=== PATIENT | female | born 1945 | race Caucasian/White ===

== ENCOUNTER → 2022-11-05 | Outpatient (CLI) | payer MEDICARE, BC ==
--- NOTE | 2022-11-08 06:07 | NM ---
EXAMINATION TYPE: NM bone 3 phase DATE OF EXAM: 11/05/2022 COMPARISON: Outside bilateral knee x-rays November 01, 2022 HISTORY: Bilateral knee pain. History of left knee replacement 2018. Right knee osteoarthritis border . Triple phase bone scintigraphy was performed following the injection of 23.5 mCi Tc 99m MDP. Immedia te images and 5.25 hours post injection images acquired. Imaging performed of the bilateral knees. FINDINGS: Dynamic arterial and soft tissue phase images show no asymmetric increased radiotracer uptake to eith er knee. There is lucency from prosthesis in the left knee noted. Delayed images show mild nonspecifi c radiotracer uptake in the right knee and surrounding the left knee prosthesis favoring degenerative change IMPRESSION: No three-phase increased radiotracer uptake in the left knee to suggest prosthetic loosen ing or infection.
== END | disposition home or self-care (01) ==
LOC: RADNMMAIN 07:23
PROVIDERS: ATTEND Orthopaedic Surgery
DX: T84.84XA Pain due to internal orthopedic prosthetic devices, implants and grafts, initial encounter (principal); M17.11 Unilateral primary osteoarthritis, right knee; Z96.652 Presence of left artificial knee joint
CPT/HCPCS: 78315; A9503

== ENCOUNTER → 2022-11-11 | Outpatient (CLI) | payer MEDICARE, BC ==
--- NOTE | 2022-11-11 11:42 | US ---
EXAMINATION TYPE: US venous doppler duplex LE LT DATE OF EXAM: 11/11/2022 11:32 AM COMPARISON: NONE CLINICAL INDICATION: Female, 77 years old with history of [id number] PAIN IN LEFT KNEE; Pain. Factor fiv e. Not on blood thinners. No redness or swelling. Hx blood clot in right leg per patient. SIDE PERFORMED: Left TECHNIQUE: The lower extremity deep venous system is examined utilizing real time linear array sonog ashley with graded compression, doppler sonography and color-flow sonography. VESSELS IMAGED: Common Femoral Vein Deep Femoral Vein Greater Saphenous Vein * Femoral Vein Popliteal Vein Small Saphenous Vein * Proximal Calf Veins (* superficial vessels) Left Leg: Negative for DVT IMPRESSION: No evidence of DVT at this time.
== END | disposition home or self-care (01) ==
LOC: RADUSWWP 11:06
PROVIDERS: ATTEND Orthopaedic Surgery
DX: T84.84XD Pain due to internal orthopedic prosthetic devices, implants and grafts, subsequent encounter (principal); I80.9 Phlebitis and thrombophlebitis of unspecified site; Z96.652 Presence of left artificial knee joint
CPT/HCPCS: 85379; 85652; 86140

== ENCOUNTER → 2023-04-04 | Outpatient (CLI) | payer MEDICARE, BC ==
[2023-04-04 21:27] LABS: HCT 41.8 % (37.2-46.3); HGB 13.9 d/dL (12.0-15.0); MCH 31.6 pg (27.0-32.0); MCHC 33.3 d/dL (32.0-37.0); Mean Platelet Volume 8.8 FL (9.5-12.2); NRBC Per 100 WBC 0 X 10*3/uL (0.00-0.01); Platelet Count 282 X 10*3/uL (140-440); RDW 12.1 % (11.5-14.5)
[2023-04-04 21:54] LABS: Blood Urea Nitrogen 17.2 mg/dL (9.0-27.0); Carbon Dioxide 25.4 mmol/L (21.6-31.8); Chloride 104 mmol/L (96-109); Potassium 5.8 mmol/L (3.5-5.5); Sodium 140 mmol/L (135-145)
== END | disposition home or self-care (01) ==
LOC: LABPAT 13:14
PROVIDERS: ATTEND Internal Medicine Clinical Cardiac Electrophysiology
DX: Z01.812 Encounter for preprocedural laboratory examination (principal); R55 Syncope and collapse
CPT/HCPCS: 36415; 80051; 82565; 84520; 85027

== ENCOUNTER 2023-04-25 06:06 | Day surgery (SDC) | payer MEDICARE, BC ==
[2023-04-25] MEDS ORDERED: SODIUM CHLORIDE 0.9% 1,000 ML IV SCH ×2 (06:07)
[2023-04-25] MEDS ORDERED: IV FLUID CONTINUATION 1,000 ML IV ONE (08:44)
[2023-04-25] MEDS ORDERED: HEPARIN SODIUM,PORCINE 5,000 UNIT/ML 1 ML VIAL ONE (10:14)
[2023-04-25] MEDS ORDERED: PROPOFOL 10 MG/ML 20 ML VIAL IV ONE (10:14)
[2023-04-25] MEDS ORDERED: fentaNYL (PF) 50 MCG/ML 2 ML AMP ONE (10:14)
[2023-04-25] MEDS ORDERED: MIDAZOLAM 2 MG/2 ML VIAL ONE (10:14)
[2023-04-25] MEDS ORDERED: ISOPROTERENOL 250 MCG/1.25 ML SYR IV ONE (10:14)
[2023-04-25] MEDS ORDERED: ONDANSETRON 4 MG/2 ML VIAL ONE (10:14)
--- NOTE | 2023-04-25 10:21 | P.HPCAR ---
History of Present Illness This is Dr. 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 Monitor has demonstrated episodes of SVT PLAN: Tilt table testing Diagnostic EP study to look for any inducible arrhythmias and management accordingly HPI Patient continues to have episodes of presyncope associated with palpitations She had yet another episode on Tuesday Interim improved upon sitting down She was dizzy and presyncopal but did not lose consciousness No cough shortness of breath and chest discomfort ROS: No fever chills or rigors, no cough, phlegm or expectoration, no nausea, vomiting or diarrhea, no hematuria, dysuria, no musculoskeletal complaints, no strokes or seizures, no skin lesions. EXAMINATION: Blood pressure 158/84 mmHg pulse rate in the 80s afebrile Breath sounds are clear Heart sounds S1 and S2 are normal Abdomen is soft No JVD no carotid bruits REVIEW OF LABS, ECG & MEDICAL DATA Home medications include valsartan pravastatin Physical Exam Vitals: Vital Signs Temp Pulse Resp BP Pulse Ox 04/25/23 07:01 98 F 84 18 158/84 96 Intake and Output 04/24/23 04/25/23 04/25/23 22:59 06:59 14:59 Intake Total 100 Balance 100 Intake: IV 100 Other: Weight 68.6 kg Past Medical History Past Medical History: Atrial Fibrillation, Deep Vein Thrombosis (DVT), Hypertension Additional Past Medical History / Comment(s): with a fib, gets dizzy and fluttering, pressure, 1972 blood clot behing rt knee, See Dr Pond's H & P History of Any Multi-Drug Resistant Organisms: None Reported Past Surgical History: Appendectomy, Back Surgery, Section, Hysterectomy, Joint Replacement Additional Past Surgical History / Comment(s): lft knee replaced, fusion with leon and screws to back 4,5,6 cervical spine also fused.terence carpal tunnel Past Anesthesia/Blood Transfusion Reactions: No Reported Reaction Smoking Status: Former smoker Physical Examination Vital Signs Temp Pulse Resp BP Pulse Ox 04/25/23 07:01 98 F 84 18 158/84 96 Intake and Output 04/24/23 04/25/23 04/25/23 22:59 06:59 14:59 Intake Total 100 Balance 100 Intake: IV 100 Other: Weight 68.6 kg Results Current Medications Generic Name Dose Route Start Last Admin Trade Name Pelon PRN Reason Stop Dose Admin Sodium Chloride 1,000 mls @ 20 mls/hr 04/25/23 06:07 Saline 0.9% IV 05/25/23 06:08 .Q24H HA Sodium Chloride 1,000 mls @ 20 mls/hr 04/25/23 06:07 04/25/23 07:02 Saline 0.9% IV 05/25/23 06:08 100 mls .Q24H HA Administration Intake and Output 04/24/23 04/25/23 04/25/23 22:59 06:59 14:59 Intake Total 100 Balance 100 Intake: IV 100 Other: Weight 68.6 kg Patient Weight 04/26/23 06:59 Weight 68.6 kg
--- NOTE | 2023-04-25 10:26 | P.EPPROC ---
- EP Procedure Note Electrophysiology Procedure Note: Diagnosis Recurrent presyncope and near syncope Twelve-lead Normal HI narrow QRS normal ST segments normal QT interval No delta waves Heart rate 73 beats a minute Tilt table test per protocol Baseline blood pressure 137 65 mmHg Baseline 163 beats a minute Patient was tilted upright at an angle of 70 per protocol There was an intermediate drop in blood pressure by about 10-20 points with a mild increase in heart rate into the 80s Following that the blood pressure returned to baseline Blood pressure remained normal thereafter/stable Heart rate remained in the 80s and 90s No evidence for dysautonomia or neurocardiogenic syncope Impression Mild initial orthostatic hypotension, transient, upon standing Normal twelve-lead EKG No evidence for neurocardiogenic phenomena or orthostatic hypotension syndrome
[2023-04-25] MEDS ORDERED: LIDOCAINE 1% INJ 10MG/ML (20 ML MDV) SQ ONE (10:41)
[2023-04-25] MEDS ORDERED: IOPAMIDOL-370 100ML BTL INJ ONE (10:53)
[2023-04-25] MEDS ORDERED: LIDOCAINE 1% INJ 10MG/ML (20 ML MDV) ONE ×2 (11:53→11:55)
[2023-04-25 12:32] LABS: HCT 38.5 % (34.0-46.0); HGB 13.1 gm/dL (11.4-16.0); MCHC 34.1 g/dL (31.0-37.0); MCV 96.7 fL (80.0-100.0); Mean Platelet Volume 7.6; Platelet Count 248 k/uL (150-450); RBC 3.98 m/uL (3.80-5.40); RDW 12.4 % (11.5-15.5); WBC 7.1 k/uL (3.8-10.6)
[2023-04-25] MEDS ORDERED: HEPARIN SODIUM (1,000 UNIT/ML) 1,000 UNIT in SODIUM CHLORIDE 0.9% 1,000 ML IRRIGATION ONE (12:53)
[2023-04-25] MEDS ORDERED: ACETAMINOPHEN TAB 325 MG TAB PO PRN (13:00)
[2023-04-25] MEDS ORDERED: ACETAMINOPHEN IV (For NPO) 1,000 MG in EMPTY BAG 1 BAG IVPB ONE (13:00)
[2023-04-25] MEDS: METOPROLOL SUCCINATE (ER) 25 MG TAB.ER.24H PO SCH (13:52)
[2023-04-25] MEDS: FLECAINIDE 50 MG TAB PO SCH ×2 (13:52→19:51)
--- NOTE | 2023-04-25 14:24 | P.EPPROC ---
- EP Procedure Note Electrophysiology Procedure Note: Diagnosis Recurrent palpitations or presyncope Documented tachycardia on event monitor, supraventricular Tilt table test did not show any evidence for neurocardiogenic syncope or dysautonomia Final diagnosis Rapid atrial fibrillation/atrial tachycardia originating from the septum on the left side of the atrium Early activation from a broad area on the septum/multicentric Likely primary source of the right-sided pulmonary veins and the septum History of factor V Leyden deficiency with history of left-sided DVT Occluded left iliac vein occluding access. Large collaterals, tortuous Patent right iliac vein and left subclavian veins Plan Flecainide 50 mg twice daily Metoprolol succinate 25 mg once daily Continue antihypertensive therapy Consider A. fib ablation since this tachycardia results in recurrent syncope and presyncope Anticoagulation to be started 4 weeks before A. fib ablation Hold metoprolol and flecainide prior to A. fib ablation, 2 days In the A. fib ablation we will proceed with at access from the right femoral vein and coronary sinus cannulation via the left subclavian vein Cryoablation of all pulmonary veins and the septum will be performed Following that a diagnostic EP study to look for any residual atrial tachycardias and need for any RF ablation thereafter Details Patient was brought to the EP lab in a fasting state. Written informed consent was obtained prior to the procedure. Venous access obtained successfully in the left femoral vein. However the catheters could not be advanced beyond the iliac vein Finally a venogram was performed and it showed an occlusion of the left iliac vein with extensive collaterals, large and tortuous consistent with a chronic occlusion Venogram was performed right femoral and iliac vein and this was found to be large and patent 3 venous sheaths were placed in the right femoral vein Diagnostic catheters were placed in the right heart in the high right atrium and dilated and the Hank sinus, His bundle area and right ventricle Sinus cycle length 948 ms, SC interval 174 ms, QRS 97 ms and QRS 425 ms AH 86 and HV 43 ms Sinus recovery times were normal at 1143, 1063 and 840 ms AV node Wenckebach block 420 ms VA Wenckebach block 410 ms Parahisian pacing revealed a prema response Atrial extra stimulation performed from her treatment coronary sinus. Antegrade slow pathway conduction was noted but no induction of AV prema reentry Isuprel was started and on high dose Isuprel while pacing from the right ventricle during VA Wenckebach block SVT was induced SVT was induced with ventricular pacing cycle length 160 ms Tachycardia cycle length was about 290 ms Long RP SVT Slight variation in the amplitudes and the electrograms Concentric activation in the coronary sinus Ventricular pacing resulted in association Hank sinus he flexes stimulation was performed SVT was not induced A venous sheaths were then placed in the left subclavian vein and Hank sinus access and cannulation was performed Pentaray catheter was used from below to mapped the right atrium SVT was induced 3-D mapping revealed a broad area of activation in the mid septum of the right atrium In the catheter was placed just below the SVC it completely disorganized into atrial fibrillation Following that Isuprel was discontinued and later electrical cardioversion performed with a 200 J shock to sinus rhythm since the atrial fibrillation is persistent In evaluation of coronary sinus electrograms revealed a septal deviation in the amplitude and retrogram characteristics consistent with atrial fibrillation
--- NOTE | 2023-04-25 14:25 | P.PRLE ---
RE: Radha Arenas Dear Dr. Arin Terrell underwent a diagnostic EP study for recurrent palpitations and presyncope She actually has atrial fibrillation, not SVT I will schedule her for an A. fib ablation in the near future but she needs to be in anticoagulation for at least 4 weeks prior to this In the interim I would treat her with flecainide and metoprolol Thank you for entrusting me with the care of the patient Warm regards Sincerely Shaheen Pond
[2023-04-25 19:32] VITALS: RESP 16
[2023-04-25] MEDS ORDERED: PRAVASTATIN SODIUM 40 MG TAB PO SCH (21:00)
[2023-04-26 01:54] VITALS: PULSE 68
[2023-04-26] MEDS: METOPROLOL SUCCINATE (ER) 25 MG TAB.ER.24H PO SCH (07:42)
[2023-04-26] MEDS: FLECAINIDE 50 MG TAB PO SCH (07:43)
[2023-04-26 08:55] LABS: HCT 36.5 % (37.2-46.3); MCH 31.6 pg (27.0-32.0); MCHC 32.9 d/dL (32.0-37.0); MCV 96.1 FL (80.0-97.0); Mean Platelet Volume 8.8 FL (9.5-12.2); NRBC Per 100 WBC 0 X 10*3/uL (0.00-0.01); Platelet Count 217 X 10*3/uL (140-440); RDW 12.6 % (11.5-14.5); WBC 6.69 X 10*3/uL (4.50-10.00)
[2023-04-26 08:58] VITALS: BP 110/71; TEMP 97.5
[2023-04-26] MEDS ORDERED: VALSARTAN 160 MG TAB PO SCH (09:00)
--- NOTE | 2023-04-26 09:50 | P.DS ---
Providers Attending physician: Shaheen Pond Primary care physician: [facility] Course: Patient sitting comfortably in a chair No chest discomfort No abdominal discomfort No dizziness or lightheadedness Rhythm is normal Tolerating flecainide Twelve-lead EKG today shows sinus rhythm normal LA narrow QRS normal ST segments on flecainide heart rate 60 beats a minute On examination abdomen no tenderness in the right and left quadrants Groins of healed well no hematoma Subclavian site access is mildly tender Hemoglobin 12 Impression Paroxysmal atrial fibrillation with RVR associated with presyncope as diagnosed on EP study yesterday Started temporarily on metoprolol and flecainide Would recommend an EP study and ablation for atrial fibrillation Most likely sources are the right-sided pulmonary veins and the septum on the left side. These will be targeted appropriately with cryoablation and if needed RF ablation The plan is to hold metoprolol and flecainide for 2 days prior to the procedure ELIQUIS starting 4 weeks before the procedure and to continue thereafter Discharge home today follow with Dr. Gordon Will schedule for A. fib ablation Discussed with the patient Instructions given Plan - Discharge Summary Discharge Rx Participant: No New Discharge Prescriptions: New Metoprolol Succinate (ER) [Toprol XL] 25 mg PO DAILY #90 tab Flecainide [Tambocor] 50 mg PO Q12HR #60 tab Continue Valsartan [Diovan] 160 mg PO DAILY Acetaminophen Tab [Tylenol] 650 mg PO Q6H PRN PRN Reason: Pain Cranberry Fruit Extract [Cranberry] 500 mg PO DAILY Pravastatin Sodium [Pravachol] 40 mg PO HS Ascorbic Acid [Vitamin C] 500 mg PO DAILY Discharge Medication List Acetaminophen Tab [Tylenol] 650 mg PO Q6H PRN 04/13/23 [History] Ascorbic Acid [Vitamin C] 500 mg PO DAILY 04/13/23 [History] Cranberry Fruit Extract [Cranberry] 500 mg PO DAILY 04/13/23 [History] Pravastatin Sodium [Pravachol] 40 mg PO HS 04/13/23 [History] Valsartan [Diovan] 160 mg PO DAILY 04/13/23 [History] Flecainide [Tambocor] 50 mg PO Q12HR #60 tab 04/26/23 [Rx] Metoprolol Succinate (ER) [Toprol XL] 25 mg PO DAILY #90 tab 04/26/23 [Rx] Follow up Appointment(s)/Referral(s): Andre Gordon DO [STAFF PHYSICIAN] - 05/05/23 3:15 pm Patient Instructions/Handouts: A-fib (Atrial Fibrillation) (DC)
== END 2023-04-26 13:50 | disposition home or self-care (01) ==
LOC: CATHEP 06:06 → 6NMEDSUR 12:48 → CATHEP 04-26 13:50
PROVIDERS: ATTEND Internal Medicine Clinical Cardiac Electrophysiology
DX: I95.1 Orthostatic hypotension (principal); I47.10 Supraventricular tachycardia, unspecified; I48.0 Paroxysmal atrial fibrillation; I10 Essential (primary) hypertension; F17.210 Nicotine dependence, cigarettes, uncomplicated; E78.5 Hyperlipidemia, unspecified; Z86.718 Personal history of other venous thrombosis and embolism; Z86.73 Personal history of transient ischemic attack (TIA), and cerebral infarction without residual deficits; Z90.49 Acquired absence of other specified parts of digestive tract; Z98.891 History of uterine scar from previous surgery; Z90.710 Acquired absence of both cervix and uterus; Z79.899 Other long term (current) drug therapy; Z82.49 Family history of ischemic heart disease and other diseases of the circulatory system
CPT/HCPCS: 93623; 93621; 93620; 93613; 93660; 86900; 86901; 84443; 85027 ×2; 86850; C1894; C1769; C1760; C1730 ×2; C1731; J2001; J1644; J0131; Q9967

== ENCOUNTER 2023-06-06 11:05 | Day surgery (SDC) | payer MEDICARE, BC ==
[~2023-06-06 11:05] MED LIST: MIDAZOLAM 2 MG/2 ML VIAL IV PRN; ONDANSETRON 4 MG/2 ML VIAL IVP ONE; fentaNYL (PF) 50 MCG/ML 2 ML AMP IV PRN
[2023-06-06] MEDS: SODIUM CHLORIDE 0.9% 1,000 ML IV SCH (12:10)
[2023-06-06] MEDS ORDERED: fentaNYL (PF) 50 MCG/ML 2 ML AMP ONE (12:47)
[2023-06-06] MEDS ORDERED: GLYCOPYRROLATE 0.2 MG/ML 2 ML VIAL ONE (12:47)
[2023-06-06] MEDS ORDERED: DEXAMETHASONE SOD PHOSPHATE 10 MG/ML 1 ML VIAL ONE (12:47)
[2023-06-06] MEDS ORDERED: MIDAZOLAM 2 MG/2 ML VIAL ONE (12:47)
[2023-06-06] MEDS ORDERED: NEOSTIGMINE 1 MG/ML 10 ML VIAL ONE (12:47)
[2023-06-06] MEDS ORDERED: ISOPROTERENOL 250 MCG/1.25 ML SYR IV ONE (12:47)
[2023-06-06] MEDS ORDERED: PROPOFOL 10 MG/ML 20 ML VIAL IV ONE (12:47)
[2023-06-06] MEDS ORDERED: LIDOCAINE 1% INJ 10MG/ML (20 ML MDV) ONE ×2 (12:47→13:07)
[2023-06-06] MEDS ORDERED: HEPARIN SODIUM,PORCINE 10,000 UNIT/ML 1 ML VIAL ONE (12:47)
[2023-06-06] MEDS ORDERED: ROCURONIUM 10 MG/ML (5 ML VIAL) IV ONE (12:47)
[2023-06-06] MEDS ORDERED: PHENYLEPHRINE-0.9% NACL SYG 1,000 MCG/10 ML SYRINGE ONE (12:47)
[2023-06-06] MEDS ORDERED: SUCCINYLCHOLINE CHLORIDE 200 MG/10 ML VIAL IV ONE (12:47)
[2023-06-06] MEDS ORDERED: HEPARIN SOD,PORK IN 0.45% NACL 25,000 UNIT in 0.45% NACL 1 250ML.BAG IV ONE (13:07)
[2023-06-06] MEDS ORDERED: LIDOCAINE 1% INJ 10MG/ML (20 ML MDV) SQ ONE (13:46)
[2023-06-06] MEDS ORDERED: IOPAMIDOL-370 100ML BTL INJ ONE (15:58)
[2023-06-06] MEDS ORDERED: LACTATED RINGERS 1,000 ML IV ONE (16:39)
[2023-06-06] MEDS ORDERED: HEPARIN SODIUM (1,000 UNIT/ML) 1,000 UNIT in SODIUM CHLORIDE 0.9% 1,000 ML IRRIGATION ONE (16:40)
[2023-06-06] MEDS ORDERED: ACETAMINOPHEN IV (For NPO) 1,000 MG in EMPTY BAG 1 BAG IVPB ONE (17:55)
--- NOTE | 2023-06-06 18:08 | P.EPPROC ---
- EP Procedure Note Electrophysiology Procedure Note: PROCEDURE A. fib ablation DIAGNOSIS Paroxysmal Atrial fibrillation, symptomatic, refractory to therapy Paroxysmal atrial tachycardia/atrial flutter RESULT No left atrial appendage mass seen on intracardiac echo, preserved LV systolic function, mildly thickened pericardium Successful A. fib ablation/pulmonary vein isolation of all veins using cryo- ablation Complete entrance block in all 4 veins confirmed No evidence for phrenic nerve injury Left atrial roof ablation Ablation for typical atrial flutter PROCEDURE DETAILS Written informed consent prior to procedure. Patient brought to the EP lab. General anesthesia given. Heparin administered. ACT maintained above 300 seconds Both groins prepped and draped per protocol and venous sheaths placed. Esophagus intubated, circa catheter for temperature monitoring an endoscope for possible esophageal deflection. Phrenic nerve monitoring performed. Esophageal temperature monitoring performed. Esophageal deflection performed if circa catheter overlapping with the balloon or circa temperature less than 27.5C Intracardiac echocardiography performed. Pericardium evaluated. Left atrial appendage evaluated. Left atrium evaluated along with pulmonary veins Transseptal catheterization performed under fluoroscopic guidance and intracardiac echo guidance Cryoablation sheath exchanged, balloon catheter along with achieve catheter placed in the left atrium. Pulmonary veins isolated in the following sequence: Left superior pulmonary vein followed by left inferior pulmonary vein, followed by right inferior pulmonary vein and lastly right superior pulmonary vein. Phrenic nerve stimulation along with capture thresholds within the SVC and right superior pulmonary vein to identify the phrenic nerve proximity to the cryo- balloon. Pulmonary veins isolated and confirmed with entrance and exit block. Phrenic nerve integrity confirmed at the end of the procedure Ablation of the left atrial roof performed with sequential lesions from the left superior to the right superior pulmonary veins. Ablation of the electrograms co nfirmed Diagnostic EP study the burst stimulation induced an atrial tachycardia The right and left atria were mapped This appeared to be isthmus dependent RF ablation was performed along the cavo tricuspid isthmus with complete bidirectional block Diagnostic catheters for the high right atrium, His bundle, coronary sinus placed. LA and RA pressures recorded RA pressure: LA pressure: 02/02/13 Diagnostic EP study with coronary sinus pacing and recording Baseline measurements: Sinus cycle length 723 ms, SC interval 127 ms, QRS 108 ms and QT interval 300 ms AH interval 58 ms and HV interval 52 ms Sinus node recovery times at 600, 504 100 ms were 1078, 1108 and 862 ms AV node Wenckebach block 270 ms Burst stimulation from the low right atrium and from the coronary sinus induced an atrial tachycardia both on and off Isuprel Mapping of the right and left atrial performed and friendly localized to the cavo tricuspid isthmus area RF ablation was performed along this isthmus with complete bidirectional block Venous sheaths were removed and hemostasis assured with a closure device. Patient extubated and transferred to recovery Increase procedural time Venous access was difficult and all accesses were obtained in the right side since the left femoral vein was completely occluded with collaterals Access in the right side vein was difficult because of displacement of the vein more laterally requiring ultrasound access. 3 accesses were obtained on this vein. The end of the procedure all 3 were closed with Vascade without any problems The esophagus could not be intubated. Therefore during cryoablation in the left atrium shorter lesions had to be applied to avoid thermal injury an excess of cooling of the esophagus. This required extra number of ablations and extra ti me There was a middle right pulmonary vein that required extra ablation The temperatures during cryoablation of all veins were quite cold and therefore abbreviated lesions were applied, for shorter duration. Therefore multiple cryoablation syncope performed to ensure complete isolation. Multiple attempts needed for successful cryoablation isolation of the pulmonary vein PROCEDURES PERFORMED Diagnostic EP study CS pacing and recording Left and right transseptal catheterization Catheter the mapping of the tachycardia Intracardiac echocardiography Pulmonary vein isolation with transseptal and comprehensive EPS, [id number] Extended procedure duration Drug infusion, +[id number] Left atrial roof line, +[id number] Linear ablation, cavo tricuspid isthmus in the right atrium atrium, +[id number]
--- NOTE | 2023-06-06 18:12 | P.HPCAR ---
History of Present Illness This is Dr. Pond dictating an H/P on this patient The patient was interviewed and examined IMPRESSION / ASSESSMENT: Paroxysmal atrial fibrillation Paroxysmal atrial tachycardia, recurrent Presyncope associated with palpitations History of DVT left femoral vein with occlusion of this vein with associated large collaterals Factor V Leyden deficiency Hypertension PLAN: Ablation for atrial fibrillation followed by diagnoses EP study to see if there is any SVT or atrial tachycardia that needs to be ablated Continue anticoagulation Avoid left femoral vein access since this is completely occluded with bridging collaterals to the right femoral vein and IVC HPI Patient continues to have episodes of palpitations associated with presyncope She denies any fever chills cough expectoration No chest pain ROS: No fever chills or rigors, no cough, phlegm or expectoration, no nausea, vomiting or diarrhea, no hematuria, dysuria, no musculoskeletal complaints, no strokes or seizures, no skin lesions. EXAMINATION: Afebrile 98.1F pulse rate in the 70s Blood pressure 136/68 mmHg Breath sounds are clear no rhonchi no crackles Heart sounds S1 and S2 are normal Abdomen is soft no JVD REVIEW OF LABS, ECG & MEDICAL DATA valsartan, Pravachol, metoprolol, flecainide, ELIQUIS Physical Exam Vitals: Vital Signs Temp Pulse Resp BP Pulse Ox 06/06/23 12:15 98.1 F 73 16 136/68 98 Intake and Output 06/06/23 06/06/23 06/06/23 06:59 14:59 22:59 Intake Total 1025 542 Output Total 600 Balance 1025 -58 Intake: IV 1025 542 Output: Urine 600 Other: Weight 68.5 kg Past Medical History Past Medical History: Atrial Fibrillation, Deep Vein Thrombosis (DVT), Hypertension Additional Past Medical History / Comment(s): with a fib, gets dizzy and fluttering, pressure, 1972 blood clot behing rt knee, See Dr Pond's H & P. had recent testing for dizziness at ent office History of Any Multi-Drug Resistant Organisms: None Reported Past Surgical History: Appendectomy, Back Surgery, Cardiac Ablation, Section, Hysterectomy, Joint Replacement Additional Past Surgical History / Comment(s): lft knee replaced, fusion with leon and screws to back 4,5,6 cervical spine also fused.terence carpal tunnel rt elbow surgery Past Anesthesia/Blood Transfusion Reactions: No Reported Reaction Smoking Status: Former smoker Physical Examination Vital Signs Temp Pulse Resp BP Pulse Ox 06/06/23 12:15 98.1 F 73 16 136/68 98 Intake and Output 06/06/23 06/06/23 06/06/23 06:59 14:59 22:59 Intake Total 1025 542 Output Total 600 Balance 1025 -58 Intake: IV 1025 542 Output: Urine 600 Other: Weight 68.5 kg Results Current Medications Generic Name Dose Route Start Last Admin Trade Name Freq PRN Reason Stop Dose Admin Acetaminophen 650 mg 06/06/23 17:55 Acetaminophen Tab 325 Mg Tab PO Q6HR PRN Mild Pain (Scale 1 to 3) Apixaban 5 mg 06/06/23 21:00 Apixaban 5 Mg Tab PO BID HA Protocol Fentanyl Citrate 50 mcg 06/06/23 07:00 Fentanyl (Pf) 50 Mcg/Ml 2 Ml Amp IV 06/06/23 23:00 Q3M PRN Phase I - Pain Control Flecainide Acetate 50 mg 06/06/23 21:00 Flecainide 50 Mg Tab PO Q12HR HA Furosemide 40 mg 06/07/23 07:00 Furosemide 40 Mg Tab PO DAILY HA Sodium Chloride 1,000 mls @ 20 mls/hr 06/06/23 05:55 06/06/23 12:10 Saline 0.9% IV 07/06/23 05:56 1,000 mls .Q24H HA Administration Lactated Ringer's 1,000 mls @ 20 mls/hr 06/06/23 05:55 Lactated Ringers IV 07/06/23 05:56 .Q24H HA Metoprolol Succinate 25 mg 06/07/23 09:00 Metoprolol Succinate (Er) 25 Mg Tab.Er.24h PO DAILY HA Midazolam HCl 2 mg 06/06/23 07:00 Midazolam 2 Mg/2 Ml Vial IV 06/06/23 23:00 ONCE PRN Pre-Op Anxiety Pravastatin Sodium 40 mg 06/06/23 21:00 Pravastatin Sodium 40 Mg Tab PO HS HA Sodium Chloride 12 ml 06/06/23 17:55 Sodium Chloride 0.9% Flush 10 Ml Syringe IV Q12HR PRN Line Flush Valsartan 160 mg 06/07/23 09:00 Valsartan 160 Mg Tab PO DAILY HA Intake and Output 06/06/23 06/06/23 06/06/23 06:59 14:59 22:59 Intake Total 1025 542 Output Total 600 Balance 1025 -58 Intake: IV 1025 542 Output: Urine 600 Other: Weight 68.5 kg Patient Weight 06/07/23 06:59 Weight 68.5 kg
[2023-06-06] MEDS: LACTATED RINGERS 1,000 ML IV SCH (19:39)
[2023-06-06] MEDS ORDERED: PRAVASTATIN SODIUM 40 MG TAB PO SCH (21:00)
[2023-06-06] MEDS: APIXABAN 5 MG TAB PO SCH (23:04)
[2023-06-06] MEDS: FLECAINIDE 50 MG TAB PO SCH (23:04)
[2023-06-06] MEDS: ACETAMINOPHEN TAB 325 MG TAB PO PRN (23:11)
[2023-06-07] MEDS: SODIUM CHLORIDE 0.9% 1,000 ML IV SCH (05:28)
[2023-06-07] MEDS: LACTATED RINGERS 1,000 ML IV SCH (05:28)
[2023-06-07] MEDS: FUROSEMIDE 40 MG TAB PO SCH ×2 (05:41→09:07)
[2023-06-07 07:30] VITALS: BP 117/69; PULSE 89; RESP 16; TEMP 97.9
[2023-06-07] MEDS: APIXABAN 5 MG TAB PO SCH (08:56)
[2023-06-07] MEDS: ACETAMINOPHEN TAB 325 MG TAB PO PRN (08:57)
[2023-06-07] MEDS ORDERED: VALSARTAN 160 MG TAB PO SCH (09:00)
[2023-06-07] MEDS ORDERED: METOPROLOL SUCCINATE (ER) 25 MG TAB.ER.24H PO SCH (09:00)
[2023-06-07] MEDS: FLECAINIDE 50 MG TAB PO SCH (09:00)
--- NOTE | 2023-06-07 19:29 | P.DS ---
Providers Attending physician: Shaheen Pond Primary care physician: [facility] Course: Patient is doing well. She has a sore throat. No chest discomfort no dizziness no lightheadedness Ambulating around the in the room Heart sounds are normal and regular Breath sounds are clear Blood pressure 138/73 mmHg and 120/72 mmHg pulse rate in the 80s afebrile Groins of healed well On access was in the right groin since she has an occluded left femoral vein with collaterals No hematoma no swelling minimal tenderness Impression paroxysmal atrial fibrillation, symptomatic Status post PVI and left atrial roof line Occluded left femoral vein All accesses were V at the right femoral vein Groin is healed very well Plan Continue anticoagulation Continue current cardiac medications and follow-up with Dr. Gordon I spoke to Dr. Gordon regarding ELIQUIS and he sent a 3 month supply for her to [facility] Patient Condition at Discharge: Good Plan - Discharge Summary Discharge Rx Participant: No New Discharge Prescriptions: Continue Valsartan [Diovan] 160 mg PO DAILY Acetaminophen Tab [Tylenol] 650 mg PO Q6H PRN PRN Reason: Pain Cranberry Fruit Extract [Cranberry] 500 mg PO DAILY Metoprolol Succinate (ER) [Toprol XL] 25 mg PO DAILY #90 tab Vit C (Unk) 1 tab PO DAILY Calcium(Unk) 1 tab PO DAILY Pravastatin Sodium [Pravachol] 40 mg PO HS Ascorbic Acid [Vitamin C] 500 mg PO DAILY Flecainide [Tambocor] 50 mg PO Q12HR #60 tab Apixaban [Eliquis] 5 mg PO BID Discharge Medication List Acetaminophen Tab [Tylenol] 650 mg PO Q6H PRN 04/13/23 [History] Ascorbic Acid [Vitamin C] 500 mg PO DAILY 04/13/23 [History] Cranberry Fruit Extract [Cranberry] 500 mg PO DAILY 04/13/23 [History] Pravastatin Sodium [Pravachol] 40 mg PO HS 04/13/23 [History] Valsartan [Diovan] 160 mg PO DAILY 04/13/23 [History] Flecainide [Tambocor] 50 mg PO Q12HR #60 tab 04/26/23 [Rx] Metoprolol Succinate (ER) [Toprol XL] 25 mg PO DAILY #90 tab 04/26/23 [Rx] Apixaban [Eliquis] 5 mg PO BID 11/15/23 [History] Calcium(Unk) 1 tab PO DAILY 06/01/23 [History] Vit C (Unk) 1 tab PO DAILY 06/01/23 [History] Follow up Appointment(s)/Referral(s): Andre Gordon DO [STAFF PHYSICIAN] - 06/16/23 3:30 pm Patient Instructions/Handouts: *Surgery [facility] - ([facility]) Endometrial Ablation Post-Op Instructions, Heart Catheterization (DC) Activity/Diet/Wound Care/Special Instructions: Post EP study - Ablation instructions 1. Keep access sites dry for 2 days. 2. No heavy lifting or straining for 2 days. 3. Avoid bending the hips repeatedly for 2 days. 4. You may go up and down stairs slowly Call if the following is noted 1. Bleeding, increasing swelling or pain at the access sites. 2. Increasing chest discomfort, especially upon taking a deep breath. 3. Increasing shortness of breath, at rest or with exertion. 4. Undue cough / phlegm 5. Difficulty or pain while swallowing. 6. Pain or change in color in the extremities. 7. Fever, chills, rigors. 8. Increasing headache or neurologic symptoms. 9. Dizziness, fainting, palpitations Discharge Disposition: HOME SELF-CARE
== END 2023-06-07 14:20 | disposition home or self-care (01) ==
LOC: CATHEP 11:05 → 6NMEDSUR 17:35 → CATHEP 06-07 14:20
PROVIDERS: ATTEND Internal Medicine Clinical Cardiac Electrophysiology
DX: I48.0 Paroxysmal atrial fibrillation (principal); I47.19 Other supraventricular tachycardia; I10 Essential (primary) hypertension; Z86.718 Personal history of other venous thrombosis and embolism; Z90.49 Acquired absence of other specified parts of digestive tract; Z90.710 Acquired absence of both cervix and uterus; Z98.891 History of uterine scar from previous surgery; Z87.891 Personal history of nicotine dependence; Z79.899 Other long term (current) drug therapy
CPT/HCPCS: 93623; 93655; 93656; 93657; 86900; 86901; 86850; C1759; C1894 ×2; C1769 ×3; C1760; C1730 ×2; C1731; C1893; C1733; C1766; C1732; J2250; J0330; J1644 ×3; J1100; J2710; J2001; J3010; J2704; Q9967; J2371; 93662

== ENCOUNTER → 2023-08-23 | Outpatient (CLI) | payer MEDICARE, BC ==
--- NOTE | 2023-08-24 07:23 | US ---
EXAMINATION TYPE: US kidneys/renal and bladder DATE OF EXAM: 08/23/2023 COMPARISON: NONE CLINICAL INDICATION: Female, 77 years old with history of R31.29 OTHER MICROSCOPIC HEMATURIA; microsc opic hematuria. Pt states she has had it prior and went to a urologist. They told her everything was normal EXAM MEASUREMENTS: Right Kidney: 9.0 x 4.6 x 4.6 cm Left Kidney: 10.0 x 3.8 x 5.3 cm Right Kidney: No hydronephrosis or masses seen. Small hyperechoic foci present. Left Kidney: Inferior pole limited due to bowel gas. Small hyperechoic foci present. Bladder: wnl. Slightly limited due to bowel gas Bilateral Jets seen: No due to bowel gas Multiple calcifications seen in bilateral kidneys, liver, and spleen There is no evidence for hydronephrosis at this point in time. No nephrolithiasis is seen. No willy s are identified. The urinary bladder is anechoic. Bilateral ureteral jets are seen. IMPRESSION: 1. No obstructive uropathy. 2. Bilateral small hyperechoic foci suggestive of a nonobstructive calculi.
== END | disposition home or self-care (01) ==
LOC: RADUSWWP 16:06
PROVIDERS: ATTEND Family Medicine
DX: N28.89 Other specified disorders of kidney and ureter (principal); R31.29 Other microscopic hematuria
CPT/HCPCS: 76770

== ENCOUNTER → 2023-10-03 | Outpatient (CLI) | payer MEDICARE, BC ==
--- NOTE | 2023-10-04 09:31 | MM ---
Reason for Exam: Screening (asymptomatic). Last mammogram was performed 1 year(s) and 3 month(s) ago. Patient History: Menarche at age 11. First Full-Term at age 19. Left ovary removed at age 40. Right ovary removed at age 40. Hysterectomy at age 40. Postmenopausal. Excisional Biopsy on the Right side. Daughter had breast cancer, age 49. Risk Values: Dara 5 year model risk: 3.9%. NCI Lifetime model risk: 6.9%. Prior Study Comparison: 09/15/2002 Bilateral Screening Mammogram, [facility]. 09/20/2003 Bilateral Screening Mammogram, [facility]. 09/28/2004 Bilateral Screening Mammogram, [facility]. 07/01/2022 Bilateral Screening Mammogram, [facility]. Tissue Density: The breasts are heterogeneously dense, which may obscure small masses. Findings: Analyzed By CAD. There is no suspicious group of microcalcifications or new suspicious mass in either breast. Benign-appearing calcifications. Overall Assessment: Benign, BI-RAD 2 Management: Screening Mammogram of both breasts in 1 year. . Patient should continue monthly self-breast exams. A clinical breast exam by your physician is recommended on an annual basis. This exam should not preclude additional follow-up of suspicious palpable abnormalities. Note on Dara scores and lifetime risk: 1. A Dara score greater than 3% is considered moderate risk. If this is the case, consider specialist referral to assess eligibility for a risk reducing agent. 2. If overall lifetime risk for the development of breast cancer is 20% or higher, the patient may qualify for future screening with alternating mammogram and breast MRI. Electronically signed and approved by: Nico Lee M.D. Radiologis
== END | disposition home or self-care (01) ==
LOC: RADMAMWWP 13:15
PROVIDERS: ATTEND Family Medicine
DX: Z12.31 Encounter for screening mammogram for malignant neoplasm of breast (principal); Z78.0 Asymptomatic menopausal state; Z80.3 Family history of malignant neoplasm of breast
CPT/HCPCS: 77063; 77067

== ENCOUNTER 2024-05-09 12:31 | Day surgery (SDC) | payer MEDICARE, BC ==
[~2024-05-09 12:31] MED LIST changes: -MIDAZOLAM 2 MG/2 ML VIAL IV PRN; -ONDANSETRON 4 MG/2 ML VIAL IVP ONE
[2024-05-09] MEDS: IV FLUID CONTINUATION 1,000 ML IV ONE (12:52)
[2024-05-09] MEDS: OXYMETAZOLINE 0.05% NASL SPRAY 1 SPRAY BOTTLE EA NOSTRIL PRN (13:18)
[2024-05-09] MEDS: LACTATED RINGERS 1,000 ML IV SCH (13:23)
[2024-05-09] MEDS: DEXAMETHASONE SOD PHOSPHATE 4 MG/ML 1 ML VIAL IV ONE (13:24)
[2024-05-09] MEDS: ONDANSETRON 4 MG/2 ML VIAL IVP ONE (13:24)
[2024-05-09] MEDS: FAMOTIDINE 20 MG/2 ML VIAL IV PRN (13:24)
[2024-05-09] MEDS ORDERED: PHENYLEPHRINE-0.9% NACL SYG 1,000 MCG/10 ML SYRINGE ONE (13:43)
[2024-05-09] MEDS ORDERED: ePHEDrine 50 MG/ML 1 ML VIAL ONE (13:43)
[2024-05-09] MEDS ORDERED: fentaNYL (PF) 50 MCG/ML 2 ML AMP ONE (13:43)
[2024-05-09] MEDS ORDERED: PROPOFOL 10 MG/ML 20 ML VIAL IV ONE (13:43)
[2024-05-09] MEDS ORDERED: SUCCINYLCHOLINE CHLORIDE 200 MG/10 ML VIAL IV ONE (13:43)
[2024-05-09] MEDS ORDERED: LIDOCAINE 1% INJ 10MG/ML (20 ML MDV) ONE (13:43)
[2024-05-09] MEDS: CLINDAMYCIN 600 MG in DEXTROSE 5% IN WATER 50 ML IVPB PRN (13:47)
[2024-05-09] MEDS: LIDOCAINE 1%-EPI 1:100,000 20 ML VIAL SUBMUCOSAL ONE ×2 (13:56)
--- NOTE | 2024-05-09 14:19 | P.OP ---
Date of Procedure: 05/09/24 Preoperative Diagnosis: chronic left sided sinusitis Postoperative Diagnosis: same Procedure(s) Performed: left-sided endoscopic sinus surgery including revision left maxillary antrostomy with removal of tissue from the maxillary sinus, left anterior ethm oidectomy Anesthesia: TITUSA Surgeon: Dougie Delvalle Estimated Blood Loss (ml): 5 Pathology: other (left sinus contents) Condition: stable Disposition: PACU Indications for Procedure: this 78-year-old white female whose had sinus procedures in the past and has had more recent current issues with left maxillary symptoms and CT showing circumferential mucosal thickening left maxillary sinus. Septal floor. Is also some inflammation in the left anterior ethmoid sinus CT- CT was reviewed and did not reveal much of any inflammation the right-sided sinuses Operative Findings: left middle meatus inflammation with mucosal thickening and polypoid change of the left maxillary sinus with narrowed surgical left maxillary antrostomy also some mild inflammation in the left anterior ethmoid air cells. Description of Procedure: the patient was brought in the operative suite and placed in a supine position. Patient underwent induction of general anesthesia with oral endotracheal intubation without difficulty. Patient prepped and draped in usual aseptic fashion with the orbits in the operative field for monitoring throughout the case computed tomography scan the computer screen for review throughout the case. 1% lidocaine with 1 100,000 epinephrine was infused into the lateral nasal wall on the left and anterior tips the middle turbinate on the left. This was left to work for 7 minutes vasoconstrictive effect. The 0 endoscope was used to visualize right and left sided sinuses. Proceeding on the left the middle turbinate was medialized with a [place] elevator. There were a few residual anterior ethmoid air cells that were opened with the microdebrider. The maxillary ostium was patent but somewhat narrow and therefore was revised at the anterior fontanelle taking care anteriorly not to injure the lacrimal bone. 30 and 70 endoscope were used to visualize the left maxillary sinus and there were some small polyps but no purulence or evidence of fungal debris. Culture was not necessitated. A pledget of Xerogel nasal dressing was placed in the middle meatus under direct visualization. The patient was allowed to emerge from general anesthesia having tolerated procedure well was extubated in the operating suite and transferred to the postop recovery area in satisfactory condition.
[2024-05-09 14:26] VITALS: TEMP 97.5
[2024-05-09 15:25] VITALS: RESP 16
[2024-05-09 15:36] VITALS: BP 147/76; PULSE 70
== END 2024-05-09 15:52 | disposition home or self-care (01) ==
LOC: OR 12:31
PROVIDERS: ATTEND Otolaryngology
CPT/HCPCS: 88305

== ENCOUNTER → 2024-10-25 | Outpatient (CLI) | payer MEDICARE, BC ==
--- NOTE | 2024-10-25 17:29 | MM ---
Reason for Exam: Screening (asymptomatic). Last mammogram was performed 1 year(s) and 1 month(s) ago. Patient History: Menarche at age 11. First Full-Term at age 19. Left ovary removed at age 40. Right ovary removed at age 40. Hysterectomy at age 40. Postmenopausal. Excisional Biopsy on the Right side. Daughter had breast cancer, age 49. Risk Values: Dara 5 year model risk: 3.7%. NCI Lifetime model risk: 5.7%. Prior Study Comparison: 09/28/2004 Bilateral Screening Mammogram, [facility]. 07/01/2022 Bilateral Screening Mammogram, [facility]. 10/03/2023 Bilateral MG 3D screening mammo w/cad, [facility]. Tissue Density: The breasts are heterogeneously dense, which may obscure small masses. Findings: Analyzed By CAD. Unchanged global asymmetry left upper outer quadrant. Benign bilateral vascular calcifications. There is no suspicious group of microcalcifications or new suspicious mass in either breast. Overall Assessment: Benign, BI-RAD 2 Management: Screening Mammogram of both breasts in 1 year. See note below in regards to the patient's increased 5 year Dara score. Patient should continue monthly self-breast exams. A clinical breast exam by your physician is recommended on an annual basis. This exam should not preclude additional follow-up of suspicious palpable abnormalities. Note on Dara scores and lifetime risk: 1. A Dara score greater than 3% is considered moderate risk. If this is the case, consider specialist referral to assess eligibility for a risk reducing agent. 2. If overall lifetime risk for the development of breast cancer is 20% or higher, the patient may qualify for future screening with alternating mammogram and breast MRI. [facility], , 10/25/2024 5:26 PM. Electronically signed and approved by: Karie Em M.D. Radiologist
== END | disposition home or self-care (01) ==
LOC: RADMAMWWP 13:24
PROVIDERS: ATTEND Family Medicine
DX: Z12.31 Encounter for screening mammogram for malignant neoplasm of breast (principal); R92.333 Mammographic heterogeneous density, bilateral breasts; R92.1 Mammographic calcification found on diagnostic imaging of breast; Z78.0 Asymptomatic menopausal state; Z80.3 Family history of malignant neoplasm of breast
CPT/HCPCS: 77063; 77067

== ENCOUNTER → 2025-01-30 | Outpatient (CLI) | payer MEDICARE, BC ==
--- NOTE | 2025-01-30 20:07 | MR ---
EXAMINATION TYPE: MR angio head wo con DATE OF EXAM: 01/30/2025 7:49 PM COMPARISON: CT , MRI CLINICAL INDICATION: Female, 79 years old with history of I67.1 CEREBRAL ANEURYSM, NONRUPTUREDQ; PHH, Aneurysm follow up, Vertigo, headaches, diplopia and Memory loss TECHNIQUE: 3-D [id number] Axial with MIP reconstruction created on a separate workstation.. IV Contrast: mL (None, if empty) FINDINGS: Vertebral arteries: The vertebral arteries are patent. Vertebral arteries are: Codominant. Basilar artery: Dilated distal infundibulum. The basilar artery is intact. The basilar artery bifurca tion is normal. Internal Carotid arteries: The cervical, petrous, cavernous and supraclinoid segments are normal. ALEX: Patent with no evidence of aneurysm. ACOM: Present without evidence of aneurysm. MCA: Patent with no evidence of aneurysm. LEGAL EXECUTIVE ASSISTANT: Patent with no evidence of aneurysm. PCOM: Hypoplastic bilaterally. IMPRESSION: 1. No evidence of aneurysm or significant stenosis. 2. Dilated distal infundibulum of the basilar artery. No aneurysms definitively visualized. [facility], , 01/30/2025 8:04 PM
--- NOTE | 2025-01-30 20:15 | MR ---
EXAMINATION TYPE: MR brain and iac wo/w con DATE OF EXAM: 01/30/2025 8:03 PM COMPARISON: CT/MRI. Underlying 04/07/2010 CLINICAL INDICATION: Female, 79 years old with history of I67.1 CEREBRAL ANEURYSM, NONRUPTURED; PHH, Acoustic neuroma, Aneurysm follow up, Vertigo, headaches, diplopia and Memory loss TECHNIQUE: Multi planar, multi sequence imaging was performed through the brain. Specialized thin s equences were obtained through the internal auditory canals. Pre-and post gadolinium sequences were obtained. IV Contrast: 7 mL Gadobutrol FINDINGS: Cerebral atrophy with proportional dilation to the ventricular system. The bullock-white junctions, caridad tricular system, and cisterns appear unremarkable. Scattered foci of high T2 signal intensity are se en within the periventricular white matter. Midline structures show no abnormality. Diffusion-weighte d imaging shows no evidence of restricted diffusion. The susceptibility weighted images do not reveal any evidence for micro-hemorrhage. Dilated infundibulum appears dilated slightly rightward with measuring up to 4 mm. The bone marrow signal is within normal limits. Paranasal sinuses and mastoid air cells: Mild scattered paranasal sinus disease. Visualized orbits: Orbital contents are intact. After administration of gadolinium, no abnormal enhancement is seen. The internal auditory canal sequences demonstrate no significant irregularity. The 7th cranial nerve s, 8 cranial nerves, and cerebellar pontine angles appear unremarkable. After the administration judie olinium, no abnormal enhancement is seen within the internal auditory canals. Vascular loop: Bilateral Type I: lying only in the CPA, but not entering the internal auditory canal (IAC) IMPRESSION: 1. No evidence of intracranial mass nor acute/subacute CVA. 2. No evidence of internal auditory canal abnormality. 3. Nonspecific white matter changes, likely secondary to small vessel ischemic disease. 4. No acoustic neuroma visualized. No recent priors are available for comparison. 5. Bilateral Type I vascular loops: lying only in the CPA, but not entering the internal auditory ca nal (IAC) 6. Dilated infundibulum of the basilar artery underlying aneurysm is felt to be less likely. Finding s unchanged back to 04/07/2010 [facility], , 01/30/2025 8:12 PM
== END | disposition home or self-care (01) ==
LOC: RADMRIMAIN 18:13
PROVIDERS: ATTEND Psychiatry & Neurology Neurology
DX: I67.1 Cerebral aneurysm, nonruptured (principal); R90.82 White matter disease, unspecified; I67.82 Cerebral ischemia
CPT/HCPCS: 70544; 70553; A9585